=== PATIENT | female | born 1995 | race Caucasian/White ===

== ENCOUNTER 2025-06-25 11:55 | Emergency (ER) | payer OTHER, SELFPAY ==
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
[2025-06-25 12:07] VITALS: BP 129/67; PULSE 111; RESP 18; TEMP 36.6; O2SAT 100
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
== END 2025-06-25 13:36 | disposition home or self-care (01) ==
PROVIDERS: Emergency Provider Nurse Practitioner Family; PCP Family Medicine
DX: S00.511A Abrasion of lip, initial encounter (principal); S80.01XA Contusion of right knee, initial encounter; S20.219A Contusion of unspecified front wall of thorax, initial encounter; S30.11XA Contusion of abdominal wall, initial encounter; V89.2XXA Person injured in unspecified motor-vehicle accident, traffic, initial encounter; W22.10XA Striking against or struck by unspecified automobile airbag, initial encounter
CPT/HCPCS: 73562; 73564; 99203; G0463